=== PATIENT | female | born 1990 | race Caucasian/White ===

== ENCOUNTER 2022-05-17 08:08 | Outpatient (CLI) | payer MEDICARE, OTHER | END 2022-05-17 23:59 | disposition home or self-care (01) | LOC: LAB 08:08 | PROVIDERS: ATTEND Surgery | DX: Z01.812 Encounter for preprocedural laboratory examination (principal); Z20.822 Contact with and (suspected) exposure to COVID-19 ==

== ENCOUNTER 2022-05-18 09:57 | Day surgery (SDC) | payer MEDICARE, OTHER ==
[~2022-05-18 09:57] MED LIST: BUPIVACAINE/EPI PF 0.25% 10 ML VIAL IJ ONE; LIDOCAINE HCL 1% 20 ML VIAL ONE
[2022-05-18] MEDS ORDERED: CEFAZOLIN 2 G in IV DEXTROSE 5% 100 ML IV ONE (10:30)
[2022-05-18 10:46] LABS: HEMATOCRIT 34.8 % (31.2-41.9); MEAN CORPUSCULAR HEMOGLOBIN 29.4 uug (24.7-32.8); PLATELET COUNT (AUTO) 868 K/uL (179-408)
[2022-05-18 10:48] LABS: *BILIRUBIN,URIN NEGATIVE (NEGATIVE); *BLOOD, URINE NEGATIVE (NEGATIVE); *CLARITY,URINE CLEAR (CLEAR); *COLOR,URINE YELLOW (YELLOW); *KETONES,URINE NEGATIVE (NEGATIVE); *UROBILINOGEN,URINE 0.2 E.U./dl (NORMAL); LEUKOCYTE ESTERASE ,URINE NEGATIVE (NEGATIVE); NITRITE, URINE NEGATIVE (NEGATIVE); PH,URINE 7.5 (5.0-8.0); UGLUCOSE NEGATIVE (NEGATIVE)
[2022-05-18 11:02] LABS: CREATININE 0.7 mg/dL (0.6-1.3)
[2022-05-18 11:06] LABS: *URINE HCG, QUAL NEGATIVE (NEGATIVE)
[2022-05-18 11:08] LABS: BILIRUBIN,TOTAL 0.1 mg/dL (0.2-1.0); TOTAL PROTEIN, SERUM 6.3 g/dL (6.4-8.2)
[2022-05-18] MEDS ORDERED: HYDROMORPHONE 2 MG/1 ML DISP.SYRIN ONE ×2 (11:17→15:50)
[2022-05-18] MEDS ORDERED: FENTANYL CITRATE 100 MCG/2 ML AMPUL ONE ×3 (11:17→14:43)
[2022-05-18] MEDS ORDERED: MIDAZOLAM HCL 2 MG/2 ML VIAL ONE (11:17)
[2022-05-18] MEDS ORDERED: FAMOTIDINE. 20 MG/2 ML VIAL IV ONE (11:18)
[2022-05-18] MEDS ORDERED: ROCURONIUM BROMIDE 50 MG/5 ML VIAL ONE (11:18)
[2022-05-18] MEDS ORDERED: GLYCOPYRROLATE 0.2 MG/ML VIAL ONE ×2 (11:35→13:42)
[2022-05-18] MEDS ORDERED: ONDANSETRON 4 MG/2 ML VIAL ONE ×3 (13:16→15:57)
[2022-05-18] MEDS ORDERED: HYDROMORPHONE 1 MG/1 ML DISP.SYRIN ONE ×2 (13:17→13:51)
[2022-05-18] MEDS ORDERED: DEXAMETHASONE SOD PHOSPHATE 4 MG INJ ONE (13:42)
[2022-05-18] MEDS ORDERED: LIDOCAINE-MPF 2% 5 ML VIAL ONE (13:42)
[2022-05-18] MEDS ORDERED: NEOSTIGMINE METHYLSULFATE 10 MG/10 ML VIAL ONE (13:42)
[2022-05-18] MEDS ORDERED: METOCLOPRAMIDE HCL 10 MG/2 ML VIAL ONE (13:42)
[2022-05-18] MEDS ORDERED: PROPOFOL 200 MG/20 ML BOTTLE ONE (13:42)
[2022-05-18] MEDS ORDERED: ACETAMINOPHEN 325 MG TABLET ONE (14:01)
[2022-05-18] MEDS ORDERED: GABAPENTIN 300 MG CAPSULE ONE (14:01)
[2022-05-18] MEDS ORDERED: IBUPROFEN 800 MG TABLET ONE (14:01)
[2022-05-18] MEDS ORDERED: HYDROCODONE/APAP 5-325MG TABLET ONE (15:51)
[2022-05-18] MEDS ORDERED: NALOXONE HCL 0.4 MG/ML AMPUL ONE (15:52)
== END 2022-05-18 16:55 | disposition home or self-care (01) ==
LOC: DS 09:57
PROVIDERS: ATTEND Surgery
DX: K80.10 Calculus of gallbladder with chronic cholecystitis without obstruction (principal); K51.80 Other ulcerative colitis without complications; M06.9 Rheumatoid arthritis, unspecified; F41.9 Anxiety disorder, unspecified; F32.9 Major depressive disorder, single episode, unspecified; E11.9 Type 2 diabetes mellitus without complications; Z79.84 Long term (current) use of oral hypoglycemic drugs; Z79.899 Other long term (current) drug therapy; Z98.890 Other specified postprocedural states
CPT/HCPCS: 47562; 80053; 85025; 84703; 85730; 82962; 36415; 81003; 47000; J3490 ×7; J0690; J1100; J2765; J2250; J2405 ×3; J3010 ×3; J1170 ×4; J7040; A4663; J2310